=== PATIENT | female | born 1975 | race Caucasian/White ===

== ENCOUNTER 2017-11-24 23:55 | Inpatient (IN) | payer OTHER ==
[2017-11-25] MEDS ORDERED: NS 1,000 ML IV ONE (00:15)
--- NOTE | 2017-11-25 00:15 | EDPHY ---
H & P Stated Complaint: N/V, black stools, abd pain. Time Seen by Provider: 11/25/17 00:15 HPI/ROS: HPI CHIEF COMPLAINT: Abdominal pain, black tarry stool intermittently HISTORY OF PRESENT ILLNESS: This patient is a 42-year-old female she presents emergency room with abdominal pain. She has been currently worked up by Dr. Brennan, for intermittent black tarry stool. Patient states that she has had endoscopy that showed rather significant gastritis, but no ulcer, additionally she reports she had a pill camera however it stops her cording down to her stomach. She is due to have a colonoscopy in December. She presents emergency room with increasing lower abdominal pain with vomiting x2 episodes mainly yellowish. No blood. She had black tarry stool yesterday but none today. Her main complaint is lower abdominal pain it is periumbilical. With associated nausea vomiting. No fever. Intermittent black stool. Past Medical History: Rheumatoid arthritis, insulin-dependent diabetic, migraine headaches Past Surgical History: Multiple abdominal surgeries including small-bowel resection x2, appendectomy, cholecystectomy, endometriosis Social History: Denies daily use of drugs alcohol tobacco. Family History: Noncontributory ROS REVIEW OF SYSTEMS: A comprehensive 10 point review of systems is otherwise negative aside from elements mentioned in the history of present illness. Exam Constitutional appears nontoxic no acute distress triage nursing summary reviewed, vital signs reviewed, awake/alert. Eyes normal conjunctivae and sclera, EOMI, PERRLA. HENT normal inspection, atraumatic, moist mucus membranes, no epistaxis, neck supple/ no meningismus, no raccoon eyes. Respiratory clear to auscultation bilaterally, normal breath sounds, no respiratory distress, no wheezing. Cardiovascular rate normal, regular rhythm, no murmur, no edema, distal pulses normal. Gastrointestinal mild tender palpation periumbilical, no rebound, no guarding, normal bowel sounds, no distension, no pulsatile mass. Genitourinary no CVA tenderness. Musculoskeletal no midline vertebral tenderness, full range of motion, no calf swelling, no tenderness of extremities, no meningismus, good pulses, neurovascularly intact. Skin pink, warm, & dry, no rash, skin atraumatic. Neurologic awake, alert and oriented x 3, AAOx3, moves all 4 extremities equally, motor intact, sensory intact, CN II-XII intact, normal cerebellar, normal vision, normal speech. Psychiatric normal mood/affect. Heme/Lymph/Immune no lymphadenopathy. Differential diagnosis includes but is not limited to and in no particular order : Bowel obstruction, appendicitis, gallbladder disease, diverticulitis, colitis , enteritis, perforated viscus, gastritis, GERD, esophagitis, urinary tract infection, pyelonephritis, kidney stones Medical Decision Making: Plan for this patient IV establishment with fluid bolus, IV Zofran, IV Dilaudid, 1 L normal saline IV fluid bolus, CT scan abdomen pelvis without contrast re-evaluate. Re-evaluation: 0255: CT scan abdomen pelvis with IV contrast shows some mesenteric inflammation around her periumbilical region. This is where she is tender. However abdomen pelvis does not show any acute inflammatory process other than this. 0257: Patient's blood work reviewed. At this time I did re-evaluate she is requesting more pain medicine and nausea medicine. Source: Patient - Personal History LMP (Females 10-55): Hysterectomy Current Tetanus/Diphtheria Vaccine: Yes Current Tetanus Diphtheria and Acellular Pertussis (TDAP): Yes Tetanus Vaccine Date: 2013 - Medical/Surgical History Hx Asthma: Yes Hx Chronic Respiratory Disease: No Hx Diabetes: Yes Hx Cardiac Disease: No Hx Renal Disease: No Hx Cirrhosis: No Hx Alcoholism: No Hx HIV/AIDS: No Hx Splenectomy or Spleen Trauma: No Other PMH: KIDNEY STONES, ASTHMA, endometreosis, DVT, small bowel resection, migraine, DM type2. - Social History Smoking Status: Never smoked Constitutional: Initial Vital Signs Temperature (C) 36.7 C 11/25/17 00:01 Heart Rate 105 H 11/25/17 00:01 Respiratory Rate 18 11/25/17 00:01 Blood Pressure 132/88 H 11/25/17 00:01 O2 Sat (%) 97 11/25/17 00:01 O2 Delivery Mode Room Air Allergies/Adverse Reactions: amoxicillin trihydrate [From Augmentin] Allergy (Verified 12/01/15 20:39) metoclopramide HCl [From Reglan] Allergy (Verified 11/25/17 16:34) Hives morphine Allergy (Verified 12/01/15 20:39) potassium clavulanate [From Augmentin] Allergy (Verified 12/01/15 20:39) prochlorperazine edisylate [From Compazine] Allergy (Verified 11/25/17 16:34) Psychosis prochlorperazine maleate [From Compazine] Allergy (Verified 11/25/17 16:34) Psychosis shellfish derived Allergy (Verified 12/01/15 20:39) CONTRAST DYE Allergy (Uncoded 11/25/14 21:37) Home Medications: Medication Instructions Recorded Insulin Lispro [humALOG LISPRO 100 20 unit SC TIDMEAL 12/02/15 units/ml (*)] Metoprolol Tartrate [Lopressor 100 100 mg PO BID 12/02/15 mg (*)] SUMAtriptan [Imitrex 50 MG (*)] 100 mg PO Q2H PRN 12/02/15 Albuterol [Proventil Inhaler HFA 1 - 2 puffs IH Q4H PRN 11/25/17 (*)] Cholecalciferol Vit D3 [Vitamin D3 1,000 units PO DAILY 11/25/17 (*)] Estradiol [Vivelle-Dot 0.1MG (*)] 0.1 mg TD WESA@0800 11/25/17 Insulin Degludec [Tresiba 180 unit SQ HS 11/25/17 Flextouch U-100] Pantoprazole Sodium [Protonix 40mg 40 mg PO BID 11/25/17 (*)] Medical Decision Making - Data Points Laboratory Results: Laboratory Results 11/25/17 01:50 11/25/17 01:50 Medications Given: Hydralazine HCl (Apresoline) 5 mg IVP Q4H PRN PRN Reason: SBP>170 OR DBP>100 Stop: 05/24/18 17:55 Last Admin: 11/25/17 18:09 Dose: 5 mg Hydromorphone HCl (Dilaudid) 0.5 - 1 mg IVP Q2H PRN PRN Reason: Pain, Severe Unable to Take PO Stop: 12/05/17 17:56 Last Admin: 11/25/17 23:06 Dose: 1 mg Erythromycin Lactobionate 250 (mg/ Sodium Chloride) 105 mls @ 105 mls/hr IV Q6HRS [facility] PRN Reason: Protocol Stop: 12/25/17 17:59 Last Admin: 11/25/17 18:12 Dose: 105 mls Insulin Glargine (Lantus Syringe) [address] [facility] Stop: 05/24/18 05:29 Last Admin: 11/25/17 23:05 Dose: 110 units Insulin Human Lispro (Humalog Lispro) 0 unit SC ACHS [facility] PRN Reason: Protocol Stop: 05/24/18 07:29 Last Admin: 11/25/17 23:06 Dose: 6 units Insulin Human Lispro (Humalog Lispro) 20 unit SC TIDMEAL [facility] Stop: 05/24/18 17:59 Last Admin: 11/25/17 18:05 Dose: Not Given Lorazepam (Ativan Injection) 0.5 - 1 mg IVP Q8H PRN PRN Reason: Nausea/Vomiting, Can't Take PO Stop: 05/24/18 17:57 Last Admin: 11/25/17 20:04 Dose: 1 mg Metoprolol Tartrate (Lopressor) 100 mg PO BID [facility] Stop: 05/24/18 16:29 Last Admin: 11/25/17 23:19 Dose: 100 mg Ondansetron HCl (Zofran) 4 mg IVP Q4HRS PRN PRN Reason: Nausea/Vomiting, Can't Take PO Stop: 05/24/18 03:11 Last Admin: 11/25/17 14:13 Dose: 4 mg Pantoprazole Sodium (Protonix) 40 mg IVP BID [facility] Stop: 05/24/18 08:59 Last Admin: 11/25/17 23:05 Dose: 40 mg Promethazine HCl (Phenergan) 6.25 mg IVP Q6HRS [facility] Stop: 05/24/18 17:59 Last Admin: 11/25/17 23:05 Dose: 6.25 mg Discontinued Medications Famotidine (Pepcid) 20 mg IVP EDNOW ONE Stop: 11/25/17 00:41 Last Admin: 11/25/17 02:01 Dose: 20 mg Hydromorphone HCl (Dilaudid) 0.5 mg IVP EDNOW ONE Stop: 11/25/17 00:41 Last Admin: 11/25/17 02:01 Dose: 1 mg Hydromorphone HCl (Dilaudid) 1 mg IVP EDNOW ONE Stop: 11/25/17 02:57 Last Admin: 11/25/17 03:03 Dose: 1 mg Hydromorphone HCl (Dilaudid) 0.5 - 1 mg IVP Q3HRS PRN PRN Reason: Pain, Breakthrough Stop: 12/05/17 04:50 Last Admin: 11/25/17 17:17 Dose: 1 mg Sodium Chloride (Ns) 1,000 mls @ 0 mls/hr IV EDNOW ONE; Wide Open PRN Reason: Protocol Stop: 11/25/17 00:16 Last Admin: 11/25/17 02:00 Dose: 1,000 mls Sodium Chloride (Ns) 1,000 mls @ 150 mls/hr IV CONT ABBY Stop: 05/24/18 03:14 Last Admin: 11/25/17 23:29 Dose: 1,000 mls Insulin Glargine (Lantus Syringe) 70 units SC HS ABBY Stop: 05/24/18 05:29 Last Admin: 11/25/17 06:36 Dose: 70 units Ondansetron HCl (Zofran) 4 mg IVP EDNOW ONE Stop: 11/25/17 00:41 Last Admin: 11/25/17 02:00 Dose: 4 mg Ondansetron HCl (Zofran Odt) 4 mg PO EDNOW ONE Stop: 11/25/17 01:31 Last Admin: 11/25/17 01:30 Dose: 4 mg Ondansetron HCl (Zofran) 4 mg IVP EDNOW ONE Stop: 11/25/17 02:57 Last Admin: 11/25/17 03:03 Dose: 4 mg Promethazine HCl (Phenergan) 6.25 mg IVP ONCE ONE Stop: 11/25/17 03:43 Last Admin: 11/25/17 03:50 Dose: 6.25 mg Promethazine HCl (Phenergan) 6.25 mg IVP EDNOW ONE Stop: 11/25/17 04:01 Last Admin: 11/25/17 05:04 Dose: Not Given Promethazine HCl (Phenergan) 6.25 mg IVP Q6HRS PRN PRN Reason: Nausea/Vomiting, Can't Take PO Stop: 05/24/18 05:26 Last Admin: 11/25/17 11:00 Dose: 6.25 mg Departure - Departure Disposition: [facility] Acute Clinical Impression: Abdominal pain Qualifiers: Abdominal location: unspecified location Qualified Code(s): R10.9 - Unspecified abdominal pain Condition: Fair
[2017-11-25] MEDS ORDERED: ONDANSETRON 4 MG/2 ML VIAL IVP ONE ×2 (00:40→02:56)
[2017-11-25] MEDS ORDERED: HYDROmorphONE/DILAUDID 2 MG/ML INJ IVP ONE ×2 (00:40→02:56)
[2017-11-25] MEDS ORDERED: FAMOTIDINE 20 MG/2 ML SDV IVP ONE (00:40)
[2017-11-25] MEDS ORDERED: ONDANSETRON DISINTEGRATING 4 MG TAB PO ONE (01:30)
[2017-11-25] MEDS ORDERED: ONDANSETRON DISINTEGRATING 4 MG TAB ONE (01:34)
[2017-11-25] MEDS ORDERED: HYDROmorphONE/DILAUDID 1 MG/ML INJ ONE ×2 (01:59→03:01)
[2017-11-25 02:00] LABS: PLATELET COUNT 273 10^3/uL (150-400)
[2017-11-25 02:08] LABS: INR 0.93 (0.83-1.16); PROTIME(PATIENT) 12.7 SEC (12.0-15.0)
[2017-11-25] MEDS ORDERED: ACETAMINOPHEN 325 MG TAB PO PRN (03:12)
[2017-11-25] MEDS ORDERED: LORazepam 2 MG/ML INJ IVP PRN (03:12)
[2017-11-25] MEDS ORDERED: PROMETHAZINE HCL 25 MG/ML INJ IVP ONE ×2 (03:42→04:00)
[2017-11-25] MEDS ORDERED: PROMETHAZINE HCL 25 MG/ML INJ ONE (03:48)
[2017-11-25] MEDS: NS 1,000 ML IV SCH ×3 (04:45→23:29)
[2017-11-25] MEDS: HYDROmorphONE/DILAUDID 1 MG/ML INJ IVP PRN ×9 (05:19→23:08)
[2017-11-25] MEDS ORDERED: D50W 25 GM/50 ML VIAL IVP PRN (05:21)
[2017-11-25] MEDS ORDERED: PROMETHAZINE HCL 25 MG/ML INJ IVP PRN (05:27)
[2017-11-25] MEDS ORDERED: INSULIN GLARGINE 100 UNITS/ML UNIT SC SCH ×2 (05:30→16:11)
--- NOTE | 2017-11-25 06:36 | GHP ---
[f rep st] HISTORY AND PHYSICAL DATE OF ADMISSION: 11/25/2017 The patient's PCP is unlisted. PRIMARY GI: Dr. Brennan. SOURCE: Patient provides history, appears reliable. EMR was reviewed and case discussed with ED pro vider. CHIEF COMPLAINT: Abdominal pain, melena. HISTORY OF PRESENT ILLNESS: This is a pleasant 42-year-old female with past medical history signific ant for reflux, morbid obesity, RA, insulin-dependent diabetes type 2 uncontrolled, and more recently 1 month history of intermittent melena with abdominal pain, who presents to the emergency department today with complaints of periumbilical pain that radiates into her abdomen. The patient has also be en experiencing nausea and vomiting without any hematemesis. She has been having some increased belc esther. She states it smells like sulfur. She reports that she has had some loose stools, but denies any melena hematochezia today. She states her stools are brown today, but in the last 2 days she had melenic stools. The patient denies any fevers, but has been experiencing some chills. She states s he spoke with Dr. Brennan on Saturday, who advised her if her melena or pain worsened, to go to the emerg ency department. REVIEW OF SYSTEMS: GENERAL: Positive for chills. Negative for fevers, although patient states that she always feels hot due to either her RA or since her symptoms started. SKIN: No rashes or sores. ENT: No congestion or sore throat. EYES: Patient reports she has been seeing a few extra floaters . She does have some dry eyes and wears contacts, but no acute changes in vision or ocular pain. CV : No chest pain or palpitations. RESPIRATORY: No shortness of breath or cough. GI: See HPI. : No dysuria or hematuria. MUSCULOSKELETAL: Diffuse joint muscle aching. NEURO: No current headach e, but does have a history of migraine headaches. The patient does report some numbness or tingling at the bottoms of her feet intermittently, usually in the morning. None currently. PSYCH: Patient denies anxiety or depression. ALLERGIES: Amoxicillin, morphine, Reglan, Compazine, shellfish, and contrast dye. HOME MEDICATIONS: Tresiba 120 units at h.s., sumatriptan 100 mg p.o. q.2 hours p.r.n. for migraine, metoprolol 100 mg p.o. b.i.d., Humalog lispro 10 units subcu t.i.d. with meals, Vivelle-Dot 0.025 mg Wednesdays and Saturdays, transdermal albuterol HFA 1-2 puffs inhaled q.4-6 hours p.r.n. PAST MEDICAL HISTORY: Significant for a 1 month history of intermittent melena, morbid obesity, rheu matoid arthritis, insulin-dependent diabetes type 2 uncontrolled, migraine headaches, GERD, and noctu rnal hypoxia pending an outpatient sleep study. PAST SURGICAL HISTORY: Significant for EGD and a PillCam that was unsuccessful, multiple abdominal s urgeries including small bowel resection x2, 1 with findings of endometrioma and another related to v ascular band abnormality, appendectomy, cholecystectomy, total abdominal hysterectomy, BSO. FAMILY HISTORY: Father with history of colon cancer. Mother with bile duct cancer. SOCIAL HISTORY: Patient lives with her and 2 children. She does not smoke, drink, or do benito gs. CODE STATUS: Full. PHYSICAL EXAMINATION: VITAL SIGNS: Upon arrival to the emergency department, blood pressure 131/99, heart rate is 105, respiratory rate 20, O2 sat is 97% on room air, temperature 36.8. Current vitals available, blood pressure 111/85, heart rate 99, respiratory rate 16, O2 saturation 94% on 2 L by na hector cannula, temperature 36.5. GENERAL: No acute distress. Patient is lying quite still in bed, aw micah. She does appear fatigued and ill but nontoxic, slightly flushed. HEAD: Normocephalic, atrauma tic. EYES: Extraocular muscles grossly intact. Pupils equal, round, react to light bilaterally and symmetric. No scleral icterus, conjunctival injection. Mucous membranes appear slightly dry. No n ba discharge and nasal cannula are in place. NECK: Supple, excessive soft tissue is present. CV: Regular rate and rhythm. No murmurs, rubs, or gallops appreciated. Slightly distant heart sounds secondary to body habitus. RESPIRATORY: Unlabored breathing. LUNGS: Clear to auscultation bilater ally. No wheezes, rales, or rhonchi appreciated. ABDOMEN: Obese, soft, slightly distended with ten derness to palpation in the periumbilical to lower abdominal area. No rebound or guarding appreciate d. Hypoactive bowel sounds present. : No suprapubic tenderness to palpation. No Turner catheter in place. EXTREMITIES: Patient without any cyanosis, clubbing, or edema appreciated. 2+ pedal puls es. NEURO: Grossly nonfocal. No facial drooping. Patient is awake, alert, and oriented x4. Moves all extremities. MUSCULOSKELETAL: Patient with complaints of some joint pain with range of motion. She is able to turn on her side independently. PSYCH: Thought process, content and questions appe ar appropriate. Patient does appear slightly anxious, but she is cooperative and pleasant. LABORATORY STUDIES: WBC is 9.84, hemoglobin 15.5, hematocrit 45.3, MCV of 89.5, platelet count of 27 3, no bands. Repeat H and H showing 14.5 and 42.5. PT/INR is 12.7, INR 0.93, PTT is 23.5. Lactic acid 2.3. Repeat is 1.9. Sodium 140, potassium 4.0, chloride 103, CO2 is 22, anion gap 15, BUN 20, creatinine 0.9, GFR greater than 60, glucose 291, calcium is 9.3, total bilirubin 0.6, ALT is 42, AST is 23, alk phos is 101, to kwabena protein 7.4, albumin is 4.0, lipase 118. Negative beta HCG. UA specific gravity 1.027, pH of 5. 0, 1+ blood, trace bacteria, glucose 3+, otherwise negative. CT abdomen and pelvis without contrast. Preliminary report was reviewed noting a stable 10 mm nodule in the left lower lobe since 2015. Mild mesentery inflammation in the periumbilical region. Otherw ise incidental ventral hernia with omental fat noted also small uterus. No adnexal masses. ASSESSMENT AND PLAN: Leena 42-year-old female with a history of rheumatoid arthritis, insulin dep endent diabetes mellitus 2 uncontrolled, morbid obesity, reflux with 1 month history of intermittent melena, who presents with periumbilical abdominal pain, distention, nausea, and vomiting. 1. Abdominal pain could possibly be a mesenteric lymphadenitis or less likely colitis, gastroenterit is. Patient related to ventral hernia. The patient continues to have persistent periumbilical pain and tenderness. Her nausea and vomiting have improved with antiemetics. She is afebrile. Will not start any antibiotics. She has no leukocytosis. We will further discuss with Gastroenterology or Dr Kavitha Brennan this morning. No urgent need for any intervention. The patient's hemoglobin and hematocrit are within normal limits and she has not had any complaints of melenic stools since yesterday. 2. Nausea and vomiting, controlled with antiemetics as noted above. 3. Melena. Plan as noted above. 4. Elevated lactate, likely related to some component of dehydration with a specific gravity on her urine of 1.027. Lactate has resolved after some intravenous fluids, which we will continue and make patient n.p.o. for now. 5. Diabetes type 2, uncontrolled. Patient is on 120 units of Tresiba at bedtime. Will provide her evening dose equivalent, slightly decreased dosing with Lantus per formulary at this time. We will m onitor blood sugars and add insulin dosing. 6. Morbid obesity with body mass index of 39.9. 7. Rheumatoid arthritis. Patient reports that she is not currently on any immunomodulators. She ramos s not been on for some time until she has been able to identify cause of her abdominal pain and bleed ing. 8. Chronic pain. Supportive care, p.r.n. medications as noted above. 9. Gastroesophageal reflux disease. Continue proton pump inhibitors intravenous until patient's t is advanced. 10. Nocturnal hypoxia. Continue oxygen at bedtime. Patient with plan for outpatient sleep study. 11. Fluid, electrolyte, nutrition. Continue with intravenous fluid supplementation. Patient is n.p .o. Electrolyte monitoring, replacement if needed. N.p.o. status pending further discussion with [facility]. 12. Prophylaxis. sequential compression devices, holding anticoagulation pending Gastroenterology e valuation. 13. Cor status is full. 14. Disposition: Patient admitted to observation status at this time pending further recommendation s from the Gastroenterology service. /[id number]/MODL
[2017-11-25] MEDS: ONDANSETRON 4 MG/2 ML VIAL IVP PRN ×2 (08:23→14:13)
[2017-11-25] MEDS: PANTOPRAZOLE SODIUM 40 MG VIAL IVP SCH ×2 (08:34→23:05)
[2017-11-25] MEDS: INSULIN LISPRO 100 UNIT/ML SC SCH ×5 (10:26→23:06)
--- NOTE | 2017-11-25 14:54 | ASMTCASEMG ---
Living Arrangements What is your living Answers: With Spouse arrangement? Who do you live with? Type Of Residence What kind of residence do Answers: House you live in? Discharge Plan Comments Coordination Status Comments Notes: Pt is a 42 y/o female admitted for abdominal pain and melena. Pt will most likely d/c independent when medically stable. No therapies ordered at this time. CM available for changes. Plan: Independent Date Signed: 11/25/2017 02:53 PM Electronically Signed By:CESAR Nicole
[2017-11-25] MEDS ORDERED: SUMAtriptan 50 MG TAB PO PRN (15:52)
[2017-11-25] MEDS ORDERED: ALBUTEROL 60 PUFFS/8 GM MDI IH PRN (15:52)
--- NOTE | 2017-11-25 16:19 | HOSPPROG ---
Hospitalist Progress Note Assessment/Plan: 42 yo F w dm, abd pain, vomiting abd pain and vomiting: nursing notes she threw up undigested food that she ate a few days ago. in this setting, s/o gastroparesis 1. blood sugar control 2. allergic to regaln 3. scheduled erythromycin 4. scheduled phenergan Objective: Vital Signs Temp Pulse Resp BP Pulse Ox 36.5 C 91 16 155/109 H 93 11/25/17 11:17 11/25/17 11:17 11/25/17 11:17 11/25/17 11:17 11/25/17 08:00 Laboratory Results 11/25/17 05:02 11/25/17 05:02 11/24/17 11/25/17 11/26/17 05:59 05:59 05:59 Intake Total 1000 Output Total 350 Balance 1000 -350 PT 12.7 SEC (12.0-15.0) 11/25/17 01:50 INR 0.93 (0.83-1.16) 11/25/17 01:50 ICD10 Worksheet Patient Problems: Problems Problem Status Onset Abdominal pain Acute Chest pain Acute
[2017-11-25] MEDS: PROMETHAZINE HCL 25 MG/ML INJ IVP SCH ×2 (17:18→23:05)
[2017-11-25] MEDS: METOPROLOL TARTRATE 100 MG TAB PO SCH ×2 (17:36→23:19)
[2017-11-25] MEDS ORDERED: hydrALAZINE 20 MG/ML VIAL IVP PRN (17:56)
[2017-11-25] MEDS: ERYTHROMYCIN LACTOBIONATE 250 MG in NS 100 ML IV SCH (18:12)
[2017-11-25] MEDS: LORazepam 2 MG/ML INJ IVP PRN (20:04)
[2017-11-25] MEDS ORDERED: METOPROLOL TARTRATE 100 MG TAB PO SCH (21:00)
[2017-11-25] MEDS: INSULIN GLARGINE 100 UNITS/ML UNIT SC SCH (23:05)
[2017-11-26] MEDS: ERYTHROMYCIN LACTOBIONATE 250 MG in NS 100 ML IV SCH ×3 (00:10→16:50)
[2017-11-26] MEDS: HYDROmorphONE/DILAUDID 1 MG/ML INJ IVP PRN ×10 (01:28→23:34)
[2017-11-26] MEDS: LORazepam 2 MG/ML INJ IVP PRN ×2 (03:49→14:39)
[2017-11-26] MEDS: PROMETHAZINE HCL 25 MG/ML INJ IVP SCH ×4 (06:27→23:34)
[2017-11-26] MEDS: ONDANSETRON 4 MG/2 ML VIAL IVP PRN ×4 (08:41→21:26)
[2017-11-26] MEDS: INSULIN LISPRO 100 UNIT/ML SC SCH ×7 (08:48→21:11)
[2017-11-26] MEDS: CHOLECALCIFEROL VIT D3 1,000 UNITS TAB PO SCH (08:49)
[2017-11-26] MEDS ORDERED: NS 1,000 ML IV ONE (09:04)
[2017-11-26] MEDS ORDERED: ALTEPLASE 2 MG VIAL IVP PRN (09:05)
[2017-11-26] MEDS: PANTOPRAZOLE SODIUM 40 MG VIAL IVP SCH ×2 (09:12→21:24)
--- NOTE | 2017-11-26 09:32 | HOSPPROG ---
Hospitalist Progress Note Assessment/Plan: # abd pain/N/V - started on erythromycin yesterday for presumed gastroparesis - no response - considerations include gastroparesis, gastritis, hernia; reportedly severe gastritis on recent EGD, capsule stuck in stomach - will not tolerate gastric emptying study today - cont treatment with narcotics IV, anti-emetics - will consult GI today # melena - recent EGD; plans for outpatient colonoscopy # hypotension - suspect hypovolemic - bolus 1L NS # sinus tachycardia - reports that she is on metop to control this not currently tachy # DM2 - glucs still elevated - cont insulin at present dose given NPO status - cont glargine 110 hs, lispro 20 TID meal + SSI # morbid obesity - BMI 39 # RA - off treatment; will gather further details from her regarding this Subjective: still having significant abd pain with N/V Objective: Vital Signs Temp Pulse Resp BP Pulse Ox 36.9 C 77 14 87/67 L 92 11/26/17 08:00 11/26/17 08:00 11/26/17 08:00 11/26/17 08:00 11/26/17 08:00 Laboratory Results 11/25/17 05:02 11/25/17 05:02 11/25/17 11/26/17 11/27/17 05:59 05:59 05:59 Intake Total 1000 3027 Output Total 950 Balance 1000 2077 PT 12.7 SEC (12.0-15.0) 11/25/17 01:50 INR 0.93 (0.83-1.16) 11/25/17 01:[address] abd reviewed - Physical Exam Constitutional: uncomfortable (tearful) Cardiovascular: regular rate and rhythym, no murmur, rub, or gallop Respiratory: no respiratory distress, no rales or rhonchi Gastrointestinal: other (soft; mild ventral hernia; very TTP around umbilicus; no rebound or guarding) ICD10 Worksheet Patient Problems: Problems Problem Status Onset Chest pain Acute Abdominal pain Acute
--- NOTE | 2017-11-26 09:49 | PDMN ---
Medical Necessity Medical necessity: change to IP; los>2mn for abd pain, N/V, melena, hypotension , elevated glucose; requires continued IV narcotics and antiemetics, GI consult , delay of gastric emptying study r/t symptoms, IVF bolus, follow glucose; comorbid obesity, RA, not on treatment, and sinus tach; per order and progress note 11/26/17
[2017-11-26] MEDS: METOPROLOL TARTRATE 100 MG TAB PO SCH ×2 (10:07→21:35)
[2017-11-26] MEDS ORDERED: LIDOCAINE 1% 300 MG/30 ML SDV ONE (11:51)
--- NOTE | 2017-11-26 18:00 | PDRADPN ---
Radiology Procedure Note Date of Procedure: 11/26/17 Radiologist: Osbaldo Heller Anesthesia: Local (Specify) Pre-op Diagnosis: medications needed Post-op Diagnosis: same Indication: venous access Procedure: RUE DL PICC Finding(s): DL 45cm picc via basilic vein. optimal tip position, ok to use. Inf/Abcess present in the surg proc area at time of surgery?: No EBL: Minimal Complications: none
[2017-11-26] MEDS: INSULIN GLARGINE 100 UNITS/ML UNIT SC SCH (21:24)
[2017-11-27] MEDS: HYDROmorphONE/DILAUDID 1 MG/ML INJ IVP PRN ×9 (01:55→23:39)
[2017-11-27] MEDS ORDERED: HYOSCYAMINE SULFATE 0.125 MG TAB PO PRN (04:43)
--- NOTE | 2017-11-27 04:46 | SOAPPROG ---
SOAP Progress Note Assessment/Plan: Assessment: Plan: 11/27/17 04:44 GI note See dictated consult note for details. Will start trial of Carafate and antispamsodic. No plans for EGD/colonoscopy etc. Will follow. Objective: Vital Signs Temp Pulse Resp BP Pulse Ox 36.9 C 78 16 129/76 H 94 11/26/17 23:42 11/26/17 23:42 11/26/17 23:42 11/26/17 23:42 11/26/17 23:42 Laboratory Results 11/25/17 05:02 11/25/17 05:02 11/25/17 11/26/17 11/27/17 05:59 05:59 05:59 Intake Total 1000 3027 2130 Output Total 950 Balance 1000 2077 2130 PT 12.7 SEC (12.0-15.0) 11/25/17 01:50 INR 0.93 (0.83-1.16) 11/25/17 01:50 ICD10 Worksheet Patient Problems: Problems Problem Status Onset Abdominal pain Acute Chest pain Acute
--- NOTE | 2017-11-27 05:12 | GCON ---
[f rep st] CONSULTATION DATE OF CONSULTATION: 11/26/2017 CONSULTING PHYSICIAN: Dr. Olman Sanchez. REASON FOR CONSULTATION: Abdominal pain/melena. CHIEF COMPLAINT: Periumbilical abdominal pain, nausea, and vomiting. HISTORY OF PRESENT ILLNESS: This patient is a 42-year-old female with multiple medical problems including endometriosis, morbid obesity, type 2 diabetes mellitus, who presents to [facility] with complaints of significant abdominal pain, nausea, vomiting, as well as intermittent melena. She states that she has been experiencing a pain that is periumbilical and radiates to her lower abdomen. She describes the pain as dull but can be sharp at times. This pain has been present for most days over the last 6 weeks but over the last several days has been persistent.and has become progressively more intense. She had significant complaints of nausea and has vomited several times. She has also had intermittent symptoms of melenic bowel movements over this time frame. She believes that oral intake can make her symptoms worse with no significant alleviating factors. The patient has had multiple GI complaints in the past and has had multiple CT scans including her last one during admission of 11/25/2017. She had a recent upper endoscopy on 09/18/2017 during hospitalization at [facility] for complaints of epigastric pain, nausea, and vomiting, which was fairly unrevealing. She had a capsule endoscopy performed on 10/14/2017, but unfortunately the capsule did not pass beyond the stomach. She may have a questionable history of gastroparesis. Her last colonoscopy was on 02/13/2016 where she was found to have a tubular adenoma. I am being asked by Dr. Sanchez to evaluate the patient in consultation regarding abdominal pain, nausea, vomiting, as well as melenic stools. PAST MEDICAL HISTORY: Obstructive sleep apnea, PCOS, endometriosis, anal fissure, rheumatoid arthritis, diabetes mellitus type 2, migraines, asthma, chronic pelvic pain. PAST SURGICAL HISTORY: Anal sphincterotomy, appendectomy, exploratory laparotomy with lysis of adhesions, hemorrhoidectomy, small bowel resection, hysterectomy. FAMILY HISTORY: Mother liver cancer and diabetes mellitus type 2, hypertension , asthma. Sister myasthenia gravis, diabetes mellitus type 2, hyperlipidemia. Father brain cancer. SOCIAL HISTORY: . No significant alcohol or tobacco use. ALLERGIES: Amoxicillin, morphine, Reglan, Compazine, shellfish, contrast dye. HOME MEDICATION: Tresiba, sumatriptan, metoprolol, Humalog, albuterol, control. REVIEW OF SYSTEMS: A 12-point comprehensive review of systems was asked. Pertinent positives and negatives per HPI. PHYSICAL EXAM: VITALS: Blood pressure 124/65, heart rate 84, respirations 12, temperature is 36.8. GENERAL: Awake and alert and oriented. Patient has nausea and does seem in some distress. HEENT: Anicteric mucosa. NECK: No JVD. CARDIOVASCULAR: Regular rhythm, positive S1, S2. No murmurs appreciated. LUNGS: Clear to auscultation bilaterally without wheezes, rales, or rhonchi. ABDOMEN: Mild tenderness in the midepigastrium area. No guarding. No rebound. Positive bowel sounds. EXTREMITIES: No cyanosis, clubbing, edema. NEUROLOGIC: 2 through 12 grossly intact. PSYCH: Normal affect. BLOOD WORK: WBCs 9.4, hemoglobin 15.5, hematocrit 45.3. INR 0.93. Lactic acid 1.9. ASSESSMENT AND PLAN: 1. Nausea and vomiting- with abdominal pain. Has had prior symptoms in the past. Has had a workup including several CT scans and an EGD with no obvious cause of her symptoms found. Etiology ? Atypical gastroparesis versus infectious versus psychogenic versus other? At this time, low yield to repeat upper endoscopy. Would recommend conservative care including PPI therapy. If symptoms continue, will continue a trial of Carafate versus other. 2. Melena - intermittent. Has a recent upper endoscopy with a colonoscopy done several years ago. She did have a capsule endoscopy where the pill did not pass into the small bowel. At this time, not concerned about an active GI bleed, and her hemoglobin has been stable. Would consider repeat capsule endoscopy, as well as repeat colonoscopy as an outpatient. 3. Diabetes mellitus. 4. Morbid obesity. 5. Rheumatoid arthritis. 6. Chronic pain. 7. Gastroesophageal reflux disease. 8. Endometriosis. 9. Obstructive sleep apnea. Thank you for this consultation. /[id number]/MODL MTDD
[2017-11-27] MEDS: PROMETHAZINE HCL 25 MG/ML INJ IVP SCH ×4 (06:06→23:25)
[2017-11-27] MEDS ORDERED: ESTRADIOL VIVELLE 0.1 MG PATCH TD SCH (08:00)
[2017-11-27] MEDS: PANTOPRAZOLE SODIUM 40 MG VIAL IVP SCH ×2 (08:48→20:38)
[2017-11-27] MEDS: ONDANSETRON 4 MG/2 ML VIAL IVP PRN ×2 (08:49→16:44)
[2017-11-27] MEDS: NS 1,000 ML IV SCH ×2 (08:59→20:50)
[2017-11-27] MEDS: SUCRALFATE 1 GM/10 ML UDCUP PO SCH ×5 (08:59→20:38)
[2017-11-27] MEDS: METOPROLOL TARTRATE 100 MG TAB PO SCH ×2 (08:59→20:38)
[2017-11-27] MEDS: INSULIN LISPRO 100 UNIT/ML SC SCH ×7 (09:00→21:14)
[2017-11-27] MEDS: CHOLECALCIFEROL VIT D3 1,000 UNITS TAB PO SCH (09:06)
[2017-11-27] MEDS: LORazepam 2 MG/ML INJ IVP PRN ×2 (10:47→20:38)
[2017-11-27] MEDS ORDERED: oxyCODONE IR 5 MG TAB PO PRN (12:49)
--- NOTE | 2017-11-27 12:50 | HOSPPROG ---
Hospitalist Progress Note Assessment/Plan: # abd pain/N/V - did not respond to erythromycin - per Dr Hsu, recent EGD was unremarkable; he is not planning endoscopic evaluation at this time - she is requiring significant dilaudid IV - will increase dosing interval - start oxy PO and encourage this - cont protonix IV, trial of carafate and levsin # melena - recent EGD; plans for outpatient colonoscopy # hypotension - resolved with IVF # sinus tachycardia - reports that she is on metop to control this not currently tachy # DM2 - glucs still elevated - cont insulin at present dose given NPO status - cont glargine 110 hs, lispro 20 TID meal + SSI # morbid obesity - BMI 39 # RA - off treatment; will gather further details from her regarding this Subjective: feels slightly better today Objective: Vital Signs Temp Pulse Resp BP Pulse Ox 37.2 C 70 16 134/69 H 91 L 11/27/17 09:23 11/27/17 09:23 11/27/17 09:23 11/27/17 09:23 11/27/17 09:23 Laboratory Results 11/25/17 05:02 11/25/17 05:02 11/26/17 11/27/17 11/28/17 05:59 05:59 05:59 Intake Total 3027 2280 Output Total 950 300 Balance 2076 1979 PT 12.7 SEC (12.0-15.0) 11/25/17 01:50 INR 0.93 (0.83-1.16) 11/25/17 01:50 high risk needing dilaudid IV - Physical Exam Constitutional: no apparent distress, appears nourished Cardiovascular: regular rate and rhythym, no murmur, rub, or gallop Respiratory: no respiratory distress, no rales or rhonchi, clear to auscultation Gastrointestinal: other (soft, TTP mostly fidel-umbilical), No guarding, No rebound, No distension ICD10 Worksheet Patient Problems: Problems Problem Status Onset Chest pain Acute Abdominal pain Acute
--- NOTE | 2017-11-27 16:54 | ASMTCMCOM ---
CM Note CM Note Notes: CM spoke w/RN, plan remains the same, anticipate pt will dc home w/support of when medically stable. CM available for any changes. DC Plan: Indepedent Date Signed: 11/27/2017 04:54 PM Electronically Signed By:Kelsea Corea RN
--- NOTE | 2017-11-27 20:25 | SOAPPROG ---
SOAP Progress Note Assessment/Plan: Assessment: Plan: 11/27/17 04:44 GI note See dictated consult note for details. Will start trial of Carafate and antispamsodic. No plans for EGD/colonoscopy etc. Will follow. 11/27/17 20:23 A/P 1. Abdominal pain- with nausea. Mildly improved. Will see how she does on trial of carafate and hyoscyamine. Subjective: cc: Follow up on abdominal pain. Feeling about 10-15% better Objective: Vital Signs Temp Pulse Resp BP Pulse Ox 36.8 C 77 16 130/75 H 92 11/27/17 19:31 11/27/17 19:31 11/27/17 19:31 11/27/17 19:31 11/27/17 19:31 Laboratory Results 11/25/17 05:02 11/25/17 05:02 11/26/17 11/27/17 11/28/17 05:59 05:59 05:59 Intake Total 3027 2280 1200 Output Total 950 300 Balance 2077 1980 1200 PT 12.7 SEC (12.0-15.0) 11/25/17 01:50 INR 0.93 (0.83-1.16) 11/25/17 01:50 Physical Exam - Physical Exam General Appearance: no apparent distress EENT: No scleral icterus (R), No scleral icterus (L) Respiratory: lungs clear, normal breath sounds, No crackles, No rales, No rhonchi Cardiac/Chest: regular rate, rhythm, No diastolic murmur, No systolic murmur Abdomen: soft, No non-tender (tender in umbilical area), No distended, No guarding, No rebound Skin: normal color Neuro/Psych: alert, normal mood/affect, oriented x 3, abnormal line palletizer II-XII ICD10 Worksheet Patient Problems: Problems Problem Status Onset Chest pain Acute Abdominal pain Acute
[2017-11-27] MEDS: INSULIN GLARGINE 100 UNITS/ML UNIT SC SCH (22:39)
[2017-11-28] MEDS: ONDANSETRON 4 MG/2 ML VIAL IVP PRN (02:44)
[2017-11-28] MEDS: HYDROmorphONE/DILAUDID 1 MG/ML INJ IVP PRN ×6 (02:44→21:49)
[2017-11-28] MEDS: NS 1,000 ML IV SCH (05:45)
[2017-11-28] MEDS: PROMETHAZINE HCL 25 MG/ML INJ IVP SCH ×4 (05:46→22:57)
[2017-11-28 06:03] LABS: PLATELET COUNT 181 10^3/uL (150-400)
[2017-11-28] MEDS: PANTOPRAZOLE SODIUM 40 MG VIAL IVP SCH ×2 (08:35→21:49)
[2017-11-28] MEDS: METOPROLOL TARTRATE 100 MG TAB PO SCH ×2 (08:35→21:49)
[2017-11-28] MEDS: D5W 1/2 NS W/ 20 KCl/L 1,000 ML IV SCH ×2 (08:40→16:35)
[2017-11-28] MEDS: SUCRALFATE 1 GM/10 ML UDCUP PO SCH ×4 (09:28→21:48)
[2017-11-28] MEDS: CHOLECALCIFEROL VIT D3 1,000 UNITS TAB PO SCH (10:04)
[2017-11-28] MEDS: INSULIN LISPRO 100 UNIT/ML SC SCH ×7 (10:09→22:02)
--- NOTE | 2017-11-28 12:08 | HOSPPROG ---
Hospitalist Progress Note Assessment/Plan: # abd pain/N/V - did not respond to erythromycin - recent EGD with gastritis - she is requiring significant dilaudid IV - trying to wean today and use PO narcotics - start oxy PO and encourage this - cont protonix IV, trial of carafate and levsin - will keep her NPO while she is on narcotics IV # hypoK - argues that she is truly not taking PO - replete via IVF # melena - recent EGD; plans for outpatient colonoscopy # hypotension - resolved with IVF # sinus tachycardia - reports that she is on metop to control this not currently tachy # DM2 - glucs still elevated - cont insulin at lower dose given NPO status - cont glargine 110 hs, lispro 20 TID meal + SSI # morbid obesity - BMI 39 # RA - off treatment; will gather further details from her regarding this Subjective: "having a bad morning" Objective: Vital Signs Temp Pulse Resp BP Pulse Ox 36.3 C 69 12 118/69 87 L 11/28/17 11:19 11/28/17 11:19 11/28/17 11:19 11/28/17 11:19 11/28/17 11:19 Laboratory Results 11/28/17 05:54 11/28/17 05:54 11/27/17 11/28/17 11/29/17 05:59 05:59 05:59 Intake Total 2280 2750 Output Total 300 200 Balance 1979 2750 -200 PT 12.7 SEC (12.0-15.0) 11/25/17 01:50 INR 0.93 (0.83-1.16) 11/25/17 01:50 CORHIO reviewed - Physical Exam Constitutional: obese, uncomfortable Cardiovascular: regular rate and rhythym, no murmur, rub, or gallop Respiratory: no respiratory distress, no rales or rhonchi, clear to auscultation Gastrointestinal: other (soft, mild diffuse TTP), No guarding, No rebound ICD10 Worksheet Patient Problems: Problems Problem Status Onset Chest pain Acute Abdominal pain Acute
--- NOTE | 2017-11-28 21:21 | SOAPPROG ---
SOAP Progress Note Assessment/Plan: Assessment: Plan: 11/27/17 04:44 GI note See dictated consult note for details. Will start trial of Carafate and antispamsodic. No plans for EGD/colonoscopy etc. Will follow. 11/27/17 20:23 A/P 1. Abdominal pain- with nausea. Mildly improved. Will see how she does on trial of carafate and hyoscyamine. 11/28/17 21:18 A/P 1. Abdominal pain- with nausea. Intermittent melena. Not improved on trial of Carafate and antispasmodic. On PPI. Had similar episode at [facility]. Recent EGD at the end of September which was unrevealing. Multiple CT scans. Colonoscopy Feb 2016. Capsule endoscopy performed but pill did not leave the stomach. Will check a CT enterography. Will also consider repeat EGD but low yield due to recent EGD. R/b/a discussed with patient. Subjective: cc: Follow up with abdominal pain and nausea Still complaining of significant pain and nausea. Objective: Vital Signs Temp Pulse Resp BP Pulse Ox 37.1 C 79 16 117/78 94 11/28/17 19:14 11/28/17 19:14 11/28/17 19:14 11/28/17 19:14 11/28/17 19:14 Laboratory Results 11/28/17 05:54 11/28/17 05:54 11/27/17 11/28/17 11/29/17 05:59 05:59 05:59 Intake Total 2280 2750 Output Total 300 450 Balance 1980 2750 -450 PT 12.7 SEC (12.0-15.0) 11/25/17 01:50 INR 0.93 (0.83-1.16) 11/25/17 01:50 Physical Exam - Physical Exam General Appearance: mild distress EENT: No scleral icterus (R), No scleral icterus (L) Respiratory: lungs clear, normal breath sounds, No crackles, No rales Cardiac/Chest: regular rate, rhythm Abdomen: soft, No non-tender (tender in umbilicical area), No distended, No guarding, No rebound Skin: normal color, warm/dry Neuro/Psych: no motor/sensory deficits, oriented x 3, No abnormal straw hat brusher II-XII ICD10 Worksheet Patient Problems: Problems Problem Status Onset Chest pain Acute Abdominal pain Acute
[2017-11-28] MEDS: LORazepam 2 MG/ML INJ IVP PRN (21:49)
[2017-11-28] MEDS: INSULIN GLARGINE 100 UNITS/ML UNIT SC SCH (22:02)
[2017-11-29] MEDS ORDERED: ESTRADIOL VIVELLE 0.1 MG PATCH TD SCH (00:15)
[2017-11-29] MEDS: HYDROmorphONE/DILAUDID 1 MG/ML INJ IVP PRN ×3 (01:49→10:03)
[2017-11-29] MEDS: D5W 1/2 NS W/ 20 KCl/L 1,000 ML IV SCH ×2 (03:00→12:47)
[2017-11-29] MEDS: PROMETHAZINE HCL 25 MG/ML INJ IVP SCH ×2 (05:53→12:46)
[2017-11-29] MEDS ORDERED: methylPREDNISolone SOD SUCC 125 MG/2 ML VIAL IVP ONE (08:15)
[2017-11-29] MEDS: PANTOPRAZOLE SODIUM 40 MG VIAL IVP SCH (10:02)
[2017-11-29] MEDS: METOPROLOL TARTRATE 100 MG TAB PO SCH (10:03)
[2017-11-29] MEDS: INSULIN LISPRO 100 UNIT/ML SC SCH ×6 (10:04→17:33)
[2017-11-29] MEDS: ONDANSETRON 4 MG/2 ML VIAL IVP PRN (10:16)
[2017-11-29] MEDS: CHOLECALCIFEROL VIT D3 1,000 UNITS TAB PO SCH (10:26)
[2017-11-29] MEDS: LORazepam 2 MG/ML INJ IVP PRN (10:47)
[2017-11-29] MEDS: SUCRALFATE 1 GM/10 ML UDCUP PO SCH ×3 (10:47→17:33)
[2017-11-29] MEDS ORDERED: IOPAMIDOL (ISOVUE-300) 100 ML BTL ONE (10:50)
[2017-11-29] MEDS ORDERED: POTASSIUM Cl (KCl) 20 MEQ in 1/2 NS 1,000 ML IV SCH (13:30)
[2017-11-29 16:07] VITALS: BP 132/85
--- NOTE | 2017-11-29 17:05 | GDS ---
[f rep st] DISCHARGE SUMMARY ALL DIAGNOSES: 1. Abdominal pain of unclear etiology. 2. Hypokalemia. 3. Melena with plans for an outpatient EEG, outpatient colonoscopy. 4. Hypotension. 5. Sinus tachycardia. 6. Diabetes mellitus type 2. 7. Morbid obesity. ALL CONSULTATIONS: Gastroenterology, Dr. Hsu. HOSPITAL COURSE: A 42-year-old female presented with abdominal pain. She had recently been worked up as an outpatient with an EGD which showed some gastritis. She also had some intermittent complaints of melena, has additional plans for an outpatient colonoscopy. She was treated here conservatively. Seen by Gastroenterology. [place] that repeating an endoscopy would be very low yield. She had imaging of her abdomen which did not show any clear etiology. She had an abdominal CT scan which showed question of mild haziness of the central mesentery. She has had a cholecystectomy, appendectomy as well as small bowel resection as well as likely a benign lung nodule. She had CT enterography performed as well, which did not elucidate any etiology of her pain. She has been treated with Carafate as well as intravenous Dilaudid. On the day of discharge, she began to feel better, has tolerated a full lunch and feels ready to go home. I have given her Dilaudid 2 mg #10, Phenergan, prescriptions for hycosamine as well as Carafate. She already has plans to follow up with gastroenterology, Dr. Brennan, as an outpatient. I have encouraged her to keep this. She is comfortable with all these plans BILLING: I spent more than 30 minutes on the day of discharge coordinating care. /[id number]/MODL MTDD
--- NOTE | 2017-11-29 17:14 | SOAPPROG ---
SOAP Progress Note Assessment/Plan: Assessment: Plan: 11/27/17 04:44 GI note See dictated consult note for details. Will start trial of Carafate and antispamsodic. No plans for EGD/colonoscopy etc. Will follow. 11/27/17 20:23 A/P 1. Abdominal pain- with nausea. Mildly improved. Will see how she does on trial of carafate and hyoscyamine. 11/28/17 21:18 A/P 1. Abdominal pain- with nausea. Intermittent melena. Not improved on trial of Carafate and antispasmodic. On PPI. Had similar episode at [facility]. Recent EGD at the end of September which was unrevealing. Multiple CT scans. Colonoscopy Feb 2016. Capsule endoscopy performed but pill did not leave the stomach. Will check a CT enterography. Will also consider repeat EGD but low yield due to recent EGD. R/b/a discussed with patient. 11/29/17 16:41 1. A/P 1. Abdominal pain- with nausea. CT enterography unrevealing. Had recent EGD ( September 2017)with no cause found. Improved 30% since yesterday. Diet restarted. If tolerates, discharge soon. Continue PPI and antispasmodic. Will need repeat capsule as outpatient. If doesnt improve, will consider repeat EGD and this was discussed with patient. Subjective: cc: Follow up on abdominal pain Feeling 30% better. Diet restarted. Objective: Vital Signs Temp Pulse Resp BP Pulse Ox 36.9 C 75 16 132/85 H 88 L 11/29/17 16:00 11/29/17 16:00 11/29/17 16:00 11/29/17 16:00 11/29/17 16:00 Laboratory Results 11/28/17 05:54 11/29/17 06:00 11/28/17 11/29/17 11/30/17 05:59 05:59 05:59 Intake Total 2750 1200 Output Total 450 200 Balance 2750 750 -200 PT 12.7 SEC (12.0-15.0) 11/25/17 01:50 INR 0.93 (0.83-1.16) 11/25/17 01:50 Physical Exam - Physical Exam General Appearance: alert, no apparent distress EENT: No scleral icterus (R), No scleral icterus (L) Respiratory: lungs clear, normal breath sounds Cardiac/Chest: regular rate, rhythm Abdomen: soft, No non-tender (minimal tenderness in midepi) Skin: normal color, warm/dry Neuro/Psych: normal mood/affect, oriented x 3 ICD10 Worksheet Patient Problems: Problems Problem Status Onset Chest pain Acute Abdominal pain Acute
== END 2017-11-29 18:21 | disposition home or self-care (01) | DRG 392 ==
LOC: OBSVTOIN 11-25 03:04 → F3E 11-25 04:20
PROVIDERS: ADMIT Family Medicine; ATTEND Student in an Organized Health Care Education/Training Program
PROC: 02HV33Z Insertion of Infusion Device into Superior Vena Cava, Percutaneous Approach (ICD-10-PCS; principal; 2017-11-25)
DX: R10.9 Unspecified abdominal pain (principal); K92.1 Melena; E87.6 Hypokalemia; I95.9 Hypotension, unspecified; R00.0 Tachycardia, unspecified; E11.9 Type 2 diabetes mellitus without complications; M06.9 Rheumatoid arthritis, unspecified; K21.9 Gastro-esophageal reflux disease without esophagitis; G47.33 Obstructive sleep apnea (adult) (pediatric); E66.01 Morbid (severe) obesity due to excess calories; Z68.39 Body mass index [BMI] 39.0-39.9, adult; Z79.4 Long term (current) use of insulin
CPT/HCPCS: 82947-QW; 96374; 97165-GO; C1751; G0378; G8987-GO-CI; G8988-GO-CI; G8989-GO-CI; J0360; J1170; J1200; J1364; J1815; J2060; J2405; J2550; J2930; J3480; Q9967

== ENCOUNTER 2017-12-25 01:41 | Inpatient (IN) | payer OTHER ==
[2017-12-25] MEDS ORDERED: HYDROmorphONE/DILAUDID 2 MG/ML INJ IVP ONE ×2 (02:13→04:09)
[2017-12-25] MEDS ORDERED: NS 1,000 ML IV ONE (02:13)
[2017-12-25] MEDS ORDERED: PROMETHAZINE HCL 25 MG/ML INJ IVP ONE (02:15)
--- NOTE | 2017-12-25 02:19 | EDPHY ---
H & P Stated Complaint: abd pain, n/v Time Seen by Provider: 12/25/17 01:55 HPI/ROS: HPI The patient presents with abdominal pain, nausea and vomiting which began overnight last night. She said she generally was feeling unwell last night. When she awoke this morning she says her abdomen felt warm to her. She then had onset of left-sided periumbilical abdominal pain which has been present throughout the day today getting progressively worse. She took a dose of Zofran as well as the pain medication she was discharged from the hospital with. She vomited these medications and has had 3 episodes of vomiting in total. She also has had loose watery stools today. She has a history of this same pain, last at the end of November of this year. She was admitted to the hospital from November 25 to for the pain. She is being followed by Dr. Brennan of Gastroenterology. She has had an endoscopy which shows gastritis. She has had CT scans which have been nondiagnostic. Gastroparesis from her diabetes has been a possible diagnosis. She has been taking her medications as prescribed. She is awaiting a colonoscopy because she does have history of melena and father with colon cancer. REVIEW OF SYSTEMS Constitutional: No fever, no chills. Eyes: No discharge. ENT: No sore throat. Cardiovascular: No chest pain, no palpitations. Respiratory: No cough, no shortness of breath. Gastrointestinal: No abdominal pain, no vomiting. Genitourinary: No hematuria. Musculoskeletal: No back pain. Skin: No rashes. Neurological: No headache. PMHx: Type 2 diabetes on insulin, last hemoglobin A1c 8.7, endometriosis, asthma, history of appendectomy and cholecystectomy Soc Hx: Housed PHYSICAL General Appearance: Alert, no distress Eyes: Pupils equal and round no pallor or injection ENT, Mouth: Mucous membranes moist Respiratory: There are no retractions, lungs are clear to auscultation Cardiovascular: Tachycardic rate and regular rhythm Gastrointestinal: Abdomen is soft and tender in the periumbilical region without rebound or guarding Neurological: A&O, moves all extremities Skin: Warm and dry, no rashes Musculoskeletal: Neck is supple non tender Extremities: symmetrical, full range of motion Psychiatric: Patient is oriented X 3, there is no agitation Source: Patient Exam Limitations: No limitations - Personal History LMP (Females 10-55): Hysterectomy Tetanus Vaccine Date: 2014 - Medical/Surgical History Hx Asthma: Yes Hx Chronic Respiratory Disease: No Hx Diabetes: Yes Hx Cardiac Disease: No Hx Renal Disease: No Hx Cirrhosis: No Hx Alcoholism: No Hx HIV/AIDS: No Hx Splenectomy or Spleen Trauma: No Other PMH: KIDNEY STONES, ASTHMA, endometreosis, DVT, small bowel resection x2, migraine, DM type2. Gastroparesis. Appendectomy. Cholecystectomy - Social History Smoking Status: Never smoked Constitutional: Initial Vital Signs Temperature (C) 36.6 C 12/25/17 01:44 Heart Rate 119 H 12/25/17 01:44 Respiratory Rate 20 12/25/17 01:44 Blood Pressure 119/101 H 12/25/17 01:44 O2 Sat (%) 98 12/25/17 01:44 O2 Delivery Mode Nasal Cannula O2 (L/minute) 3 Allergies/Adverse Reactions: amoxicillin trihydrate [From Augmentin] Allergy (Verified 12/25/17 01:43) metoclopramide HCl [From Reglan] Allergy (Verified 12/25/17 01:43) Hives morphine Allergy (Verified 12/25/17 01:43) potassium clavulanate [From Augmentin] Allergy (Verified 12/25/17 01:43) prochlorperazine edisylate [From Compazine] Allergy (Verified 12/25/17 01:43) Psychosis prochlorperazine maleate [From Compazine] Allergy (Verified 12/25/17 01:43) Psychosis shellfish derived Allergy (Verified 12/25/17 01:43) CONTRAST DYE Allergy (Uncoded 12/25/17 01:43) Home Medications: Medication Instructions Recorded Insulin Lispro [humALOG LISPRO 100 20 unit SC TIDMEAL 12/02/15 units/ml (*)] Metoprolol Tartrate [Lopressor 100 100 mg PO BID 12/02/15 mg (*)] SUMAtriptan [Imitrex 50 MG (*)] 100 mg PO Q2H PRN 12/02/15 Albuterol [Proventil Inhaler HFA 1 - 2 puffs IH Q4H PRN 11/25/17 (*)] Cholecalciferol Vit D3 [Vitamin D3 1,000 units PO DAILY 11/25/17 (*)] Estradiol [Vivelle-Dot 0.1MG (*)] 0.1 mg TD WESA@0800 11/25/17 Insulin Degludec [Tresiba 180 unit SQ HS 11/25/17 Flextouch U-100] Pantoprazole Sodium [Protonix 40mg 40 mg PO BID 11/25/17 (*)] HYDROmorphone HCL [Dilaudid 2 mg 2 mg PO TID PRN #10 tab 11/29/17 (*)] Hyoscyamine Sulfate [Levsin, 0.125 mg PO Q6HRS PRN #30 tab 11/29/17 Hyomax-Sl 0.125 mg (*)] Ondansetron Odt [Zofran Odt 4 mg 4 mg PO Q4 #30 tab 11/29/17 (*)] Promethazine HCl [Phenergan 25mg 25 mg PO TID #30 tab 11/29/17 (*)] Sucralfate [Carafate 1 GM (*)] 1 gm PO ACHS #120 tab 11/29/17 Medical Decision Making - Diagnostics Imaging Results: KUB single view demonstrates no free air, no air-fluid levels, interpreted by me , radiology interpretation is pending. Imaging: I viewed and interpreted images myself Differential Diagnosis: 42-year-old female with history of type 2 diabetes, asthma, recurrent abdominal pain, with recent admission in November of this year, currently being followed by Gastroenterology with known gastritis, possible gastroparesis from her report. Here today with recurrent abdominal pain which feels identical to her prior episode at the end of November. Differential diagnosis includes gastritis, gastroparesis, small-bowel obstruction. In the emergency department, the patient was monitored for several hours. Labs were checked and were unremarkable except for hyperglycemia. KUB was performed which demonstrated no free air and no bowel pattern to suggest bowel obstruction. She received serial doses of Dilaudid with no improvement in her pain. She remains somewhat tachycardic though her heart rate improved from the 120s to 1 teens. I do not think she is suitable for discharge at this time. I plan to admit her to the hospitalist service and have discussed the case with Dr. Schwartz. - Data Points Laboratory Results: Laboratory Results 12/25/17 02:26 12/25/17 02:26 12/25/17 12/25/17 12/25/17 04:20 02:26 02:26 WBC 8.71 10^3/uL 10^3/uL (3.80-9.50) RBC 5.30 10^6/uL 10^6/uL (4.18-5.33) Hgb 16.3 g/dL g/dL (12.6-16.3) Hct 46.0 % % (38.0-47.0) MCV 86.8 fL fL (81.5-99.8) MCH 30.8 pg pg (27.9-34.1) MCHC 35.4 g/dL g/dL (32.4-36.7) RDW 12.2 % % (11.5-15.2) Plt Count 272 10^3/uL 10^3/uL (150-400) MPV 10.3 fL fL (8.7-11.7) Neut % (Auto) 48.5 % % (39.3-74.2) Lymph % (Auto) 39.2 % % (15.0-45.0) [place] % (Auto) 9.2 % % (4.5-13.0) Eos % (Auto) 2.3 % % (0.6-7.6) Baso % (Auto) 0.5 % % (0.3-1.7) Nucleat RBC Rel Count 0.0 % % (0.0-0.2) Absolute Neuts (auto) 4.23 10^3/uL 10^3/uL (1.70-6.50) Absolute Lymphs (auto) 3.41 10^3/uL H 10^3/uL (1.00-3.00) Absolute Monos (auto) 0.80 10^3/uL 10^3/uL (0.30-0.80) Absolute Eos (auto) 0.20 10^3/uL 10^3/uL (0.03-0.40) Absolute Basos (auto) 0.04 10^3/uL 10^3/uL (0.02-0.10) Absolute Nucleated RBC 0.00 10^3/uL 10^3/uL (0-0.01) Immature Gran % 0.3 % % (0.0-1.1) Immature Gran # 0.03 10^3/uL 10^3/uL (0.00-0.10) Sodium 139 mEq/L mEq/L (135-145) Potassium 4.0 mEq/L mEq/L (3.3-5.0) Chloride 101 mEq/L mEq/L (97-110) Carbon Dioxide 20 mEq/l L mEq/l (22-31) Anion Gap 18 mEq/L H mEq/L (8-16) BUN 19 mg/dL mg/dL (7-23) Creatinine 0.7 mg/dL mg/dL (0.6-1.0) Estimated GFR > 60 Glucose 328 mg/dL H mg/dL (70-100) Calcium 9.9 mg/dL mg/dL (8.5-10.4) Total Bilirubin 0.6 mg/dL mg/dL (0.1-1.4) Conjugated Bilirubin 0.5 mg/dL mg/dL (0.0-0.5) Unconjugated Bilirubin 0.1 mg/dL mg/dL (0.0-1.1) AST 29 IU/L IU/L (14-46) ALT 39 IU/L IU/L (9-52) Alkaline Phosphatase 152 IU/L H IU/L (38-126) Total Protein 7.8 g/dL g/dL (6.3-8.2) Albumin 4.2 g/dL g/dL (3.5-5.0) Lipase 175 IU/L IU/L (23-300) Urine Color YELLOW Urine Appearance CLEAR Urine pH 5.0 (5.0-7.5) Ur Specific [place] 1.031 H (1.002-1.030) Urine Protein NEGATIVE (NEGATIVE) Urine Ketones NEGATIVE (NEGATIVE) Urine Blood NEGATIVE (NEGATIVE) Urine Nitrate NEGATIVE (NEGATIVE) Urine Bilirubin NEGATIVE (NEGATIVE) Urine Urobilinogen NEGATIVE EU EU (0.2-1.0) Ur Leukocyte Esterase NEGATIVE (NEGATIVE) Urine RBC 1-3 /hpf /hpf (0-3) Urine WBC 1-3 /hpf /hpf (0-3) Ur Epithelial Cells TRACE /lpf /lpf (NONE-1+) Urine Bacteria TRACE /hpf H /hpf (NONE SEEN) Urine Mucus TRACE /lpf /lpf (NONE-1+) Urine Glucose 3+ H (NEGATIVE) Medications Given: Insulin Glargine (Lantus Syringe) 60 units SC DAILY ABBY Stop: 06/23/18 04:59 Last Admin: 12/25/17 05:58 Dose: 60 units Discontinued Medications Hydromorphone HCl (Dilaudid) 0.5 mg IVP EDNOW ONE Stop: 12/25/17 02:14 Last Admin: 12/25/17 02:29 Dose: 0.5 mg Hydromorphone HCl (Dilaudid) 0.5 mg IVP EDNOW ONE Stop: 12/25/17 03:08 Last Admin: 12/25/17 03:12 Dose: 0.5 mg Hydromorphone HCl (Dilaudid) 0.5 mg IVP EDNOW ONE Stop: 12/25/17 04:10 Last Admin: 12/25/17 04:12 Dose: 0.5 mg Hydromorphone HCl (Dilaudid) 0.2 - 0.4 mg IVP Q4HRS PRN PRN Reason: Pain, Severe Unable to Take PO Stop: 01/04/18 04:14 Last Admin: 12/25/17 05:54 Dose: 0.4 mg Sodium Chloride (Ns) 1,000 mls @ 0 mls/hr IV EDNOW ONE; Wide Open PRN Reason: Protocol Stop: 12/25/17 02:14 Last Admin: 12/25/17 02:29 Dose: 1,000 mls Ondansetron HCl (Zofran) 4 mg IVP EDNOW ONE Stop: 12/25/17 04:10 Last Admin: 12/25/17 04:10 Dose: 4 mg Promethazine HCl (Phenergan) 12.5 mg IVP ONCE ONE Stop: 12/25/17 02:16 Last Admin: 12/25/17 02:29 Dose: 12.5 mg Departure - Departure Disposition: [facility] Referrals: Luis De La Cruz [Primary Care Provider] - As per Instructions
[2017-12-25 02:34] LABS: PLATELET COUNT 272 10^3/uL (150-400)
[2017-12-25] MEDS ORDERED: HYDROmorphONE/DILAUDID 1 MG/ML INJ IVP ONE ×4 (03:07→13:43)
[2017-12-25] MEDS ORDERED: ONDANSETRON 4 MG/2 ML VIAL ONE (04:08)
[2017-12-25] MEDS ORDERED: HYDROmorphONE/DILAUDID 1 MG/ML INJ ONE (04:08)
[2017-12-25] MEDS ORDERED: ONDANSETRON 4 MG/2 ML VIAL IVP ONE (04:09)
[2017-12-25] MEDS ORDERED: ACETAMINOPHEN 325 MG TAB PO PRN (04:15)
[2017-12-25] MEDS ORDERED: HYDROmorphONE/DILAUDID 2 MG TAB PO PRN (04:15)
[2017-12-25] MEDS ORDERED: HYDROmorphONE/DILAUDID 1 MG/ML INJ IVP PRN (04:15)
[2017-12-25] MEDS ORDERED: ONDANSETRON DISINTEGRATING 4 MG TAB PO PRN ×2 (04:15→10:09)
[2017-12-25] MEDS ORDERED: D50W 25 GM/50 ML SYR IVP PRN (05:00)
[2017-12-25] MEDS ORDERED: PROMETHAZINE HCL 25 MG/ML INJ IVP PRN (05:01)
--- NOTE | 2017-12-25 05:06 | PDGENHP ---
History and Physical - Chief Complaint Abdominal pain - History of Present Illness 42 yo obese F w/ IDDM, endometriosis, ?RA presents with recurrent abdominal pain. Patient was admitted here in November for similar presentation. She has been dealing with unexplained abdominal pain for several months. She describes "hot" and "burning" epigastric pain of unbearable severity associated with vomiting. She had done quite well after leaving the hospital in November but the pain returned this morning in a severe fashion. She took some Dilaudid PO she had at home but was unable to keep the medication down so she came to the ED. In the ED her laboratory work-up has been reassuring aside from hyperglycemia. She feels more comfortable after Dilaudid IV and nausea medication. Her last colonoscopy was on 02/20; she had a tubular adenoma at that time. Her last EGD was on 09/22; this was fairly unrevealing but notable for gastritis. A pill endoscopy was attempted in October of 2017 but the capsule did not leave the stomach. She has a repeat colonoscopy scheduled as an outpatient for 01/01. History Information - Allergies/Home Medication List Allergies/Adverse Reactions: amoxicillin trihydrate [From Augmentin] Allergy (Verified 12/25/17 01:43) metoclopramide HCl [From Reglan] Allergy (Verified 12/25/17 01:43) Hives morphine Allergy (Verified 12/25/17 01:43) potassium clavulanate [From Augmentin] Allergy (Verified 12/25/17 01:43) prochlorperazine edisylate [From Compazine] Allergy (Verified 12/25/17 01:43) Psychosis prochlorperazine maleate [From Compazine] Allergy (Verified 12/25/17 01:43) Psychosis shellfish derived Allergy (Verified 12/25/17 01:43) CONTRAST DYE Allergy (Uncoded 12/25/17 01:43) Home Medications: Insulin Lispro [humALOG LISPRO 100 units/ml (*)] 20 unit SC TIDMEAL 12/02/15 [ Last Taken 11/24/17 18:00] Metoprolol Tartrate [Lopressor 100 mg (*)] 100 mg PO BID 12/02/15 [Last Taken 21:00] SUMAtriptan [Imitrex 50 MG (*)] 100 mg PO Q2H PRN 12/02/15 [Last Taken 11/23/17] Albuterol [Proventil Inhaler HFA (*)] 1 - 2 puffs IH Q4H PRN 11/25/17 [Last Taken 11/24/17] Cholecalciferol Vit D3 [Vitamin D3 (*)] 1,000 units PO DAILY 11/25/17 [Last Taken Unknown] Estradiol [Vivelle-Dot 0.1MG (*)] 0.1 mg TD WESA@0800 11/25/17 [Last Taken 11/23] Insulin Degludec [Tresiba Flextouch U-100] 180 unit SQ HS 11/25/17 [Last Taken 11/24/17] Pantoprazole Sodium [Protonix 40mg (*)] 40 mg PO BID 11/25/17 [Last Taken 09:00] I have personally reviewed and updated: family history, medical history - Past Medical History diabetes type 2 Additional medical history: Endometriosis. ?RA. Obesity - Surgical History Reports: appendectomy, hysterectomy - Family History Positive for: diabetes type II - Social History Smoking Status: Never smoked Review of Systems Review of Systems: ROS: 10pt was reviewed & negative except for what was stated in HPI & below Physical Exam Physical Exam: Temp Pulse Resp BP Pulse Ox 36.6 C 117 H 18 107/79 94 12/25/17 01:44 12/25/17 04:00 12/25/17 04:00 12/25/17 04:00 12/25/17 04:00 Constitutional: obese, uncomfortable Eyes: PERRL, EOMI Ears, Nose, Mouth, Throat: moist mucous membranes, no oral mucosal ulcers Cardiovascular: no murmur, rub, or gallop, tachycardia Respiratory: no respiratory distress, clear to auscultation Gastrointestinal: tenderness (Diffuse), No guarding, No rebound Skin: warm, normal color Musculoskeletal: full muscle strength, no muscle tenderness Neurologic: AAOx3, CN II-XII Intact Psychiatric: interacting appropriately, not anxious Lab Data & Imaging Review 12/25/17 02:26 12/25/17 02:26 WBC 8.71 10^3/uL (3.80-9.50) 12/25/17 02:26 RBC 5.30 10^6/uL (4.18-5.33) 12/25/17 02:26 Hgb 16.3 g/dL (12.6-16.3) 12/25/17 02:26 Hct 46.0 % (38.0-47.0) 12/25/17 02:26 MCV 86.8 fL (81.5-99.8) 12/25/17 02:26 MCH 30.8 pg (27.9-34.1) 12/25/17 02:26 MCHC 35.4 g/dL (32.4-36.7) 12/25/17 02:26 RDW 12.2 % (11.5-15.2) 12/25/17 02:26 Plt Count 272 10^3/uL (150-400) 12/25/17 02:26 MPV 10.3 fL (8.7-11.7) 12/25/17 02:26 Neut % (Auto) 48.5 % (39.3-74.2) 12/25/17 02:26 Lymph % (Auto) 39.2 % (15.0-45.0) 12/25/17 02:26 [place] % (Auto) 9.2 % (4.5-13.0) 12/25/17 02:26 Eos % (Auto) 2.3 % (0.6-7.6) 12/25/17 02: Baso % (Auto) 0.5 % (0.3-1.7) 12/25/17 02:26 Nucleat RBC Rel Count 0.0 % (0.0-0.2) 12/25/17 02:26 Absolute Neuts (auto) 4.23 10^3/uL (1.70-6.50) 12/25/17 02:26 Absolute Lymphs (auto) 3.41 10^3/uL (1.00-3.00) H 12/25/17 02:26 Absolute Monos (auto) 0.80 10^3/uL (0.30-0.80) 12/25/17 02:26 Absolute Eos (auto) 0.20 10^3/uL (0.03-0.40) 12/25/17 02:26 Absolute Basos (auto) 0.04 10^3/uL (0.02-0.10) 12/25/17 02:26 Absolute Nucleated RBC 0.00 10^3/uL (0-0.01) 12/25/17 02:26 Immature Gran % 0.3 % (0.0-1.1) 12/25/17 02:26 Immature Gran # 0.03 10^3/uL (0.00-0.10) 12/25/17 02:26 Sodium 139 mEq/L (135-145) 12/25/17 02:26 Potassium 4.0 mEq/L (3.3-5.0) 12/25/17 02:26 Chloride 101 mEq/L (97-110) 12/25/17 02:26 Carbon Dioxide 20 mEq/l (22-31) L 12/25/17 02:26 Anion Gap 18 mEq/L (8-16) H 12/25/17 02:26 BUN 19 mg/dL (7-23) 12/25/17 02:26 Creatinine 0.7 mg/dL (0.6-1.0) 12/25/17 02:26 Estimated GFR > 60 12/25/17 02:26 Glucose 328 mg/dL (70-100) H 12/25/17 02:26 Calcium 9.9 mg/dL (8.5-10.4) 12/25/17 02:26 Total Bilirubin 0.6 mg/dL (0.1-1.4) 12/25/17 02:26 Conjugated Bilirubin 0.5 mg/dL (0.0-0.5) 12/25/17 02:26 Unconjugated Bilirubin 0.1 mg/dL (0.0-1.1) 12/25/17 02:26 AST 29 IU/L (14-46) 12/25/17 02:26 ALT 39 IU/L (9-52) 12/25/17 02:26 Alkaline Phosphatase 152 IU/L (38-126) H 12/25/17 02:26 Total Protein 7.8 g/dL (6.3-8.2) 12/25/17 02:26 Albumin 4.2 g/dL (3.5-5.0) 12/25/17 02:26 Lipase 175 IU/L (23-300) 12/25/17 02:26 Urine Color YELLOW 12/25/17 04:20 Urine Appearance CLEAR 12/25/17 04:20 Urine pH 5.0 (5.0-7.5) 12/25/17 04:20 Ur Specific [place] 1.031 (1.002-1.030) H 12/25/17 04:20 Urine Protein NEGATIVE (NEGATIVE) 12/25/17 04:20 Urine Ketones NEGATIVE (NEGATIVE) 12/25/17 04:20 Urine Blood NEGATIVE (NEGATIVE) 12/25/17 04:20 Urine Nitrate NEGATIVE (NEGATIVE) 12/25/17 04:20 Urine Bilirubin NEGATIVE (NEGATIVE) 12/25/17 04:20 Urine Urobilinogen NEGATIVE EU (0.2-1.0) 12/25/17 04:20 Ur Leukocyte Esterase NEGATIVE (NEGATIVE) 12/25/17 04:20 Urine RBC 1-3 /hpf (0-3) 12/25/17 04:20 Urine WBC 1-3 /hpf (0-3) 12/25/17 04:20 Ur Epithelial Cells TRACE /lpf (NONE-1+) 12/25/17 04:20 Urine Bacteria TRACE /hpf (NONE SEEN) H 12/25/17 04:20 Urine Mucus TRACE /lpf (NONE-1+) 12/25/17 04:20 Urine Glucose 3+ (NEGATIVE) H 12/25/17 04:20 Assessment & Plan Assessment: 42 yo obese F w/ IDDM, endometriosis, ?RA presents with recurrent abdominal pain. Plan: 1. Abdominal pain - Recurrent for several months now with still uncertain etiology. Patient describes severe, epi-gastric, burning pain associated with vomiting. Considerations for etiology currently include gastroparesis vs. gastritis vs. autoimmune disease vs. psychiatric. Laboratory work-up in the ED reassuring. Last EGD in September of 2017 showed only gastritis. Colonoscopy in 2015 showed tubular adenoma. Pill endoscopy in October of 2017 was unsuccessful. She is s/p appendectomy and hysterectomy. - Abdominal XR to evaluate for obstruction or free air - Will defer further imaging at this time noting prior CT scans have been unrevealing, would consider if symptoms not improving conservatively - Pain control and anti-emetics for symptom control - Patient has good outpatient follow-up in place (colonoscopy scheduled for 01/01 ). If symptoms not adequately controlled, however, it may be worthwhile to consult GI inpatient for expedited management 2. IDDM - Patient manages BG w/ insulin lispro 20 u TID + insulin degludec 180 units nightly as an outpatient. - Insulin glargine 60 u BID + SSI high protocol for now noting patient having minimal PO intake - BG ACHS + D50 IV PRN for hypoglycemia ordered - Titrate insulin as necessary 3. ?RA - Patient states she was on MTX briefly but discontinued after she started having abdominal pain. Diet - NPO, ADAT Code - Full Ppx - SCDs Dispo - Admit under observation status
[2017-12-25] MEDS: INSULIN GLARGINE 100 UNITS/ML UNIT SC SCH ×3 (05:58→21:57)
[2017-12-25] MEDS: HYDROmorphONE/DILAUDID 1 MG/ML INJ IVP PRN ×4 (08:04→23:44)
[2017-12-25] MEDS: INSULIN LISPRO 100 UNIT/ML SC SCH ×6 (08:06→18:06)
[2017-12-25] MEDS: ONDANSETRON 4 MG/2 ML VIAL IVP PRN ×3 (08:26→21:02)
[2017-12-25] MEDS ORDERED: DICLOFENAC SODIUM 1% 100 GM GEL TP PRN (10:09)
[2017-12-25] MEDS ORDERED: ALBUTEROL 3 ML DEYVIAL IH PRN (10:09)
[2017-12-25] MEDS ORDERED: SUMAtriptan 50 MG TAB PO PRN (10:09)
[2017-12-25] MEDS ORDERED: ALBUTEROL 60 PUFFS/8 GM MDI IH PRN (10:09)
[2017-12-25] MEDS ORDERED: methylPREDNISolone SOD SUCC 40 MG/ML VIAL IVP ONE (10:19)
[2017-12-25] MEDS ORDERED: INSULIN LISPRO 100 UNIT/ML SC ONE (10:34)
--- NOTE | 2017-12-25 10:34 | HOSPPROG ---
Hospitalist Progress Note Assessment/Plan: # abd pain - recurrent; significant workup in the past including colonoscopy, recent EGD, abd CT scans, capsule endoscopy - recent CT with mild enteritis; recent EGD with mild gastritis - recent GI eval did not recommend repeat EGD - trial of steroids given another inflammatory disorder - cont narcotics IV, will try not to escalate - consider ketamine later today - cont IVF # sinus tachycardia - driven by pain; on metop # DM2 - hyperglycemia - cont glargine 60 bid, lispro 20 tidmeal - follow closely while NPO, will give a one time dose of lispro 10U now # morbid obesity - BMI 39 # RA - off treatment; will gather further details from her regarding this Subjective: writhing in pain; vomiting Objective: Vital Signs Temp Pulse Resp BP Pulse Ox 36.8 C 127 H 15 129/91 H 96 12/25/17 07:50 12/25/17 07:50 12/25/17 07:50 12/25/17 07:50 12/25/17 07:50 12/24/17 12/25/17 12/26/17 05:59 05:59 05:59 Intake Total 1000 0 Balance 1000 0 30 minutes of direct patient care time spent evaluating abdominal pain - Physical Exam Constitutional: uncomfortable Gastrointestinal: other (soft, no guarding or rebound, normal BS; ) ICD10 Worksheet Patient Problems: Problems Problem Status Onset Chest pain Acute Abdominal pain Acute
[2017-12-25] MEDS: PROMETHAZINE HCL 25 MG/ML INJ IVP PRN ×2 (11:09→19:31)
[2017-12-25] MEDS: NS 1,000 ML IV SCH (11:10)
[2017-12-25] MEDS: HYDROmorphone HCL/NS 0.5 MG/ML SYR IVP PRN ×3 (13:27→19:31)
[2017-12-25] MEDS ORDERED: PROMETHAZINE HCL 25 MG SUPPR PR ONE ×2 (13:31→13:46)
[2017-12-25] MEDS ORDERED: ALTEPLASE 2 MG VIAL IVP PRN (13:44)
[2017-12-25] MEDS ORDERED: KETAMINE 200 MG/20 ML VIAL IVP ONE (13:48)
[2017-12-25] MEDS ORDERED: KETAMINE IVP ONE (14:00)
[2017-12-25] MEDS ORDERED: KETAMINE 500 MG/10 ML VIAL IV ONE (14:00)
[2017-12-25] MEDS: ATORVASTATIN CALCIUM 40 MG TAB PO SCH (21:49)
[2017-12-25] MEDS: METOPROLOL TARTRATE 100 MG TAB PO SCH (21:50)
[2017-12-25] MEDS: PANTOPRAZOLE SODIUM 40 MG TAB PO SCH (21:50)
[2017-12-26] MEDS: NS 1,000 ML IV SCH ×2 (00:48→21:43)
[2017-12-26] MEDS: PROMETHAZINE HCL 25 MG/ML INJ IVP PRN ×4 (00:49→18:53)
[2017-12-26] MEDS: ONDANSETRON 4 MG/2 ML VIAL IVP PRN ×4 (02:11→22:57)
[2017-12-26] MEDS: HYDROmorphONE/DILAUDID 1 MG/ML INJ IVP PRN ×10 (02:15→22:56)
[2017-12-26] MEDS: CHOLECALCIFEROL VIT D3 1,000 UNITS TAB PO SCH (08:42)
[2017-12-26] MEDS: PANTOPRAZOLE SODIUM 40 MG TAB PO SCH ×2 (08:42→20:26)
[2017-12-26] MEDS: CETIRIZINE 10 MG TAB PO SCH (08:42)
[2017-12-26] MEDS: METOPROLOL TARTRATE 100 MG TAB PO SCH ×2 (08:42→17:54)
[2017-12-26] MEDS: INSULIN GLARGINE 100 UNITS/ML UNIT SC SCH ×2 (09:17→20:28)
[2017-12-26] MEDS: INSULIN LISPRO 100 UNIT/ML SC SCH ×6 (09:19→17:34)
--- NOTE | 2017-12-26 09:45 | ASMTCMCOM ---
CM Note CM Note Notes: Pt in for severe abdominal pain. D/c from [facility] independent in November for similar issues. OT pending. CM to follow. Date Signed: 12/26/2017 09:45 AM Electronically Signed By:YIFAN Marshall
--- NOTE | 2017-12-26 12:11 | PDRADPN ---
Radiology Procedure Note Date of Procedure: 12/26/17 Radiologist: Osbaldo Heller Anesthesia: Local (Specify) Pre-op Diagnosis: suboptimal venous acces Post-op Diagnosis: same Indication: secure venous access Procedure: RUE PICC Finding(s): 43cm PICC reaches the mid SVC. ok to use. Inf/Abcess present in the surg proc area at time of surgery?: No Complications: none
[2017-12-26 12:32] LABS: PLATELET COUNT 238 10^3/uL (150-400)
--- NOTE | 2017-12-26 14:49 | HOSPPROG ---
Hospitalist Progress Note Assessment/Plan: # abd pain with vomiting - recurrent; significant workup in the past including colonoscopy, recent EGD, abd CT scans, capsule endoscopy - recent CT with mild enteritis; recent EGD with mild gastritis - recent GI eval did not recommend repeat EGD - steroids did not help (tried given her hx of RA) - received ketamine without significant improvement - cont narcotics IV for now - will try to deescalate soon - cont IVF - she has an appointment for a colonoscopy at the end of the month as an outpatient with Dr Brennan - notably she improved rapidly on her last admit with conservative measures # sinus tachycardia - chronic - she is on metop for this but not taking it d/t emesis # mild leukocytosis - recheck tomorrow, maybe steroid effect # DM2 - hyperglycemia despite being NPO - cont glargine 60 bid, lispro 20 tidmeal - will not increase insulin today in case this is in part driven by steroids - may need to increase tomorrow # morbid obesity - BMI 39 # RA - off treatment; will gather further details from her regarding this Subjective: reports that she feels lsightly better than yesterday Objective: Vital Signs Temp Pulse Resp BP Pulse Ox 37.1 C 103 H 18 150/98 H 97 12/26/17 11:55 12/26/17 11:55 12/26/17 11:55 12/26/17 11:55 12/26/17 11:55 Laboratory Results 12/26/17 12:07 12/26/17 12:07 12/25/17 12/26/17 12/27/17 05:59 05:59 05:59 Intake Total 1000 1400 Output Total 2850 100 Balance 1000 -1450 -100 high risk on iv narcotics - Physical Exam Constitutional: uncomfortable (actively vomiting) Eyes: anicteric sclera Ears, Nose, Mouth, Throat: hearing normal Cardiovascular: no murmur, rub, or gallop, tachycardia Respiratory: no respiratory distress, no rales or rhonchi, clear to auscultation Gastrointestinal: soft, non-tender abdomen Skin: mottled Neurologic: AAOx3 Psychiatric: flat affect ICD10 Worksheet Patient Problems: Problems Problem Status Onset Chest pain Acute Abdominal pain Acute
--- NOTE | 2017-12-26 15:07 | PDMN ---
Medical Necessity Medical necessity: MCG M05 abd pain undg. acute abd pain perisistent with vomiting- recurrent, req IV pain meds, Zofran, Phenergan, fluids, mild leukocytosis, NPO status, in pt with DM II, PICC line placed. further monitoring and tx needed > 2 MN status changed to INPT 12/26/17 @ 14:50
[2017-12-26] MEDS ORDERED: ESTRADIOL VIVELLE 0.1 MG PATCH TD SCH (15:15)
[2017-12-26] MEDS: ATORVASTATIN CALCIUM 40 MG TAB PO SCH (20:26)
[2017-12-27] MEDS: PROMETHAZINE HCL 25 MG/ML INJ IVP PRN ×2 (01:16→18:26)
[2017-12-27] MEDS: HYDROmorphONE/DILAUDID 1 MG/ML INJ IVP PRN ×8 (01:17→21:43)
[2017-12-27] MEDS: ONDANSETRON 4 MG/2 ML VIAL IVP PRN ×2 (04:34→08:14)
[2017-12-27 04:59] LABS: PLATELET COUNT 222 10^3/uL (150-400)
[2017-12-27] MEDS: METOPROLOL TARTRATE 100 MG TAB PO SCH ×2 (08:13→21:48)
[2017-12-27] MEDS: NS 1,000 ML IV SCH ×2 (08:16→18:21)
[2017-12-27] MEDS: INSULIN LISPRO 100 UNIT/ML SC SCH ×6 (09:14→18:31)
[2017-12-27] MEDS: CETIRIZINE 10 MG TAB PO SCH (09:19)
[2017-12-27] MEDS: CHOLECALCIFEROL VIT D3 1,000 UNITS TAB PO SCH (09:19)
[2017-12-27] MEDS: PANTOPRAZOLE SODIUM 40 MG TAB PO SCH ×2 (09:19→21:51)
[2017-12-27] MEDS: INSULIN GLARGINE 100 UNITS/ML UNIT SC SCH ×2 (09:23→21:52)
[2017-12-27] MEDS: ERYTHROMYCIN BASE 250 MG TAB PO SCH ×2 (11:50→18:22)
--- NOTE | 2017-12-27 17:07 | HOSPPROG ---
Hospitalist Progress Note Assessment/Plan: Subjective None patient states she is feeling little bit better today but still with significant nausea. Asked her about her allergy to Reglan and she states this was usually prescribed for migraine headaches in the past. It was not used for gastroparesis. I did ask her about the possibility of gastroparesis and she states this has been considered by other doctors in the past as well. We discussed trying erythromycin and she seemed agreeable to give this a trial to see if it would help her symptoms. She does have ongoing follow-up with Dr. Brennan. No fevers or chills noted. Objective Vital signs as detailed below Physical exam General-patient resting comfortably in bed on my evaluation she was conversant but seems somewhat uncomfortable due to nausea Heart-regular rate and rhythm no murmurs appreciated Lungs-Clear to auscultation with normal respiratory effort Abdomen-nondistended bowel sounds present somewhat diminished. -no Turner catheter in place Extremities-no significant edema Labs as detailed below Assessment plan Abdominal pain-seems reasonably well controlled with the current pain regimen. Patient states she will try to taper down on her narcotic pain medications as her symptoms hopefully chidi. I suspect she may have gastroparesis and will trial erythromycin. Acute hypoxic respiratory failure-patient is not on oxygen therapy at home but needing a small amount here. wean as able. Possibly related to atelectasis. Tachycardia-possibly some related to hypovolemia. Improved today with a heart rate in 80s and 90s. Leukocytosis resolved with her white blood cell count going from 11-8. Elevated blood pressures-somewhat labile blood pressure readings likely related to her discomfort. No antihypertensive therapy at this point time will continue to follow. Diabetes mellitus type 2-insulin dependent. Uncertain control. Will check a hemoglobin A1c with her morning labs. Rheumatoid arthritis-not on any medical therapy at the present time. DVT prophylaxis-Lovenox Disposition-likely will be able for discharge home when she can tolerate a diet. Objective: Vital Signs Temp Pulse Resp BP Pulse Ox 36.9 C 71 17 114/67 97 12/27/17 16:00 12/27/17 16:00 12/27/17 16:00 12/27/17 16:00 12/27/17 16:00 Laboratory Results 12/27/17 04:30 12/26/17 12/27/17 12/28/17 05:59 05:59 05:59 Intake Total 2400 Output Total 0930 800 Balance 550 -800 ICD10 Worksheet Patient Problems: Problems Problem Status Onset Abdominal pain Acute Chest pain Acute
[2017-12-27] MEDS: ATORVASTATIN CALCIUM 40 MG TAB PO SCH (21:57)
[2017-12-28] MEDS: HYDROmorphONE/DILAUDID 1 MG/ML INJ IVP PRN ×2 (00:26→04:10)
[2017-12-28] MEDS: PROMETHAZINE HCL 25 MG/ML INJ IVP PRN (00:43)
[2017-12-28] MEDS ORDERED: PROMETHAZINE HCL 25 MG/ML INJ IVP PRN (01:28)
[2017-12-28] MEDS: NS 1,000 ML IV SCH (04:52)
[2017-12-28 07:31] VITALS: BP 120/67
[2017-12-28] MEDS ORDERED: ESTRADIOL VIVELLE 0.1 MG PATCH TD SCH ×2 (08:00)
[2017-12-28] MEDS: INSULIN LISPRO 100 UNIT/ML SC SCH ×2 (08:07)
[2017-12-28] MEDS ORDERED: HYDROmorphONE/DILAUDID 1 MG/ML INJ IVP PRN (08:20)
[2017-12-28] MEDS ORDERED: INSULIN GLARGINE 100 UNITS/ML UNIT SC SCH ×2 (08:21)
[2017-12-28] MEDS: ERYTHROMYCIN BASE 250 MG TAB PO SCH (09:03)
[2017-12-28] MEDS: PANTOPRAZOLE SODIUM 40 MG TAB PO SCH (09:05)
[2017-12-28] MEDS: METOPROLOL TARTRATE 100 MG TAB PO SCH (09:05)
--- NOTE | 2017-12-28 10:17 | GDS ---
[f rep st] DISCHARGE SUMMARY DISCHARGE DIAGNOSIS: Possible gastroparesis. HISTORY OF PRESENT ILLNESS: The patient is a pleasant 42-year-old female with a past medical history of insulin-dependent diabetes mellitus, who has had ongoing abdominal issues over the past year. Lico soria was recently in the hospital at [facility] in November of this year with a very similar presentation of abdominal pain with nausea. She has had consultation from Gastroenterology and has a n upcoming followup with Dr. Brennan on the of this month. She has had previous endoscopy and col onoscopy, as well as including a capsule endoscopy in October of this year. We entertained the possibi lity of gastroparesis and opted to start her on erythromycin. After trying for 1 day, she did not fe el like it was making anything worse. She was actually asking to be discharged home today, stating t hat she felt good enough to return home. We discussed continuing the erythromycin for now until her followup with Dr. Brennan for further recommendations. She was agreeable to this plan. Otherwise, the re were no medication changes during this hospitalization. HOSPITAL COURSE: 1. Abdominal pain, possible gastroparesis. Will continue with a trial of erythromycin for now. She has a listed allergy to Reglan, which was used previously for headaches. 2. Elevated blood pressure. She had elevated blood pressures at times during the hospitalization, b ut this seemed to be related to her abdominal discomfort. Her blood pressure was 120/67 at the time of discharge. 3. Leukocytosis, resolved. 4. Tachycardia, resolved, likely stress response. 5. Chronic hypoxic respiratory failure. Patient is on nocturnal oxygen. 6. Diabetes mellitus type 2. No adjustments were made to her insulin regimen. 7. DVT prophylaxis. Patient was on Lovenox during this hospitalization. DISPOSITION: The patient appears stable for discharge home today, to gradually escalate her diet at home. I would recommend a followup visit with her primary provider, Dr. Luis De La Cruz, in the coming 1-2 weeks after she has consulted with Dr. Brennan. EXAM: VITAL SIGNS: On day of discharge, temperature 36.5, blood pressure 120/67, heart rate 87, res pirations 17, saturating 96%, 3 L nasal cannula while sleeping. GENERAL: The patient appears comfor table. She is awake, alert, conversant, no acute distress. HEART: Regular. No murmurs noted. LUNG S: Clear to auscultation, with normal respiratory effort. ABDOMEN: Obese, soft. No significant te nderness elicited with palpation. Bowel sounds slightly diminished. : No Turner catheter in place . EXTREMITIES: No significant pitting edema. NOTABLE STUDIES: Abdominal x-ray, 12/25/2017, mild constipation, no pneumoperitoneum or bowel obstru ction. Chest x-ray, 12/26/2017: Satisfactory positioning of right arm PICC line. White blood cell count we nt from 11 to 8, hemoglobin 13, platelets 222. Sedimentation rate 20. Last 4 glucose checks were 86 , 173, 150, and 175. DISCHARGE MEDICATIONS: 1. Erythromycin 250 mg 3 times a day with meals. 2. Imitrex 100 mg as needed for migraines. 3. Metoprolol 100 mg twice a day. 4. Humalog lispro 20 units subcutaneously 3 times a day with meals. 5. Tresiba insulin 180 units nightly. 6. Protonix 40 mg twice a day. 7. Vitamin D supplementation. 8. Estradiol 0.1 mg twice a week. 9. Albuterol inhaler as needed. 10. Dilaudid 2 mg 3 times a day as needed. 11. Zyrtec 10 mg daily. 12. Atorvastatin 40 mg nightly. 13. Zofran 4 mg every 4 hours as needed. 14. Promethazine 25 mg 3 times a day as needed. 15. Diclofenac gel. DISCHARGE INSTRUCTIONS: I recommend that she keep her upcoming GI consultation with Dr. Brennan, and I recommend a followup visit in 1-[address] Luis De La Cruz, her primary care provider. Forty minutes of time dedicated to discharge efforts. Copy requested to: Dr. Luis Brennan /[id number]/MODL
--- NOTE | 2017-12-28 16:35 | ASMTLACE ---
LACE Length of stay for Answers: 1 day current admission Acuity / Level of Answers: Yes Care: Did the patient have an inpatient admission? Comorbidities - select Answers: Chronic pulmonary disease all that apply Diabetes (uncontrolled or controlled) Other Notes: Endometriosis, HTN # of Emergency department Answers: 1-2 visits in the last 6 months Score: 9 Date Signed: 12/28/2017 04:34 PM Electronically Signed By:Cynthia Gould RN
--- NOTE | 2017-12-28 16:40 | ASDISCHSUM ---
Discharge Information Plan Status:Home with No Needs Medically Cleared to Leave:12/28/2017 Discharge Date:12/28/2017 11:25 AM CM D/C Disposition:Home, Routine, Self-Care ADT D/C Disposition:Home, Routine, Self-Care Projected Discharge Date:12/28/2017 11:25 AM Transportation at D/C:Family Discharge Delay Reason: Follow-Up Date:12/28/2017 11:25 AM Discharge Slot:2 - 12:01 pm - 18:00 pm Final Diagnosis:Abd pain, gastroparesis, elevated blood pressure, leukocytosis, tachycardia, chronic hypoxic resp failure, IDDM type 2 Placement Information Patient Contact Information Contact Name:ASHISH Relationship: Address:[address] Work Phone: City:[place] Alternate Phone: [facility]/Zip Code:[place] [address] Email: Financial Information Financial Class:HMO and PPO Plans Primary Plan Desc:[employer] [facility] [employer] Primary Plan Number:[id number] Secondary Plan Desc:MEDICARE INPATIENT Secondary Plan Number:[id number] Assessment Information LACE LACE Length of stay for Answers: 1 day current admission Acuity / Level of Answers: Yes Care: Did the patient have an inpatient admission? Comorbidities - select Answers: Chronic pulmonary disease all that apply Diabetes (uncontrolled or controlled) Other Notes: Endometriosis, HTN # of Emergency department Answers: 1-2 visits in the last 6 months Score: 9 Date Signed: 12/28/2017 04:34 PM Electronically Signed By:Cynthia Gould RN [facility] CM Progress Note CM Note CM Note Notes: Pt in for severe abdominal pain. D/c from [facility] independent in November for similar issues. OT pending. CM to follow. Date Signed: 12/26/2017 09:45 AM Electronically Signed By:YIFAN Marshall Case Management Discharge Plan Note Case Management Discharge Discharge Order Complete? Answers: Yes Patient to Obtain Answers: Independently Medications Transportation Arranged Answers: Family/Friends EMTALA Complete Answers: No Notes: N/A Case Management Transport Answers: No Notes: N/A Form Complete Faxed Final Orders Answers: No Notes: N/A Agency/Facility Transfer Answers: No Notes: N/A Report Printed & Faxed to Receiving Agency Family Notified Answers: No Notes: Pt notified Discharge Comments Notes: Reviewed chart regarding discharge plan of care, pt's progress. Pt to discharge home independently with family support and no identified needs today. No IM signed, not applicable. Pt to follow up as directed. CM available for any further issues or concerns. Discharge Plan: Home independent with family support Date Signed: 12/28/2017 04:38 PM Electronically Signed By:Cynthia Gould RN Intervention Information Intervention Type:*URSZULA-Signed Date of Service:12/25/2017 10:09 AM Patient Type:Observation Staff Member:Deanna Louis Hours: Discipline: Severity: Comment:
== END 2017-12-28 11:25 | disposition home or self-care (01) | DRG 74 ==
LOC: INTOOBSV 04:14 → F3N 06:07 → OBSVTOIN 12-26 14:50
PROVIDERS: ADMIT Student in an Organized Health Care Education/Training Program; ATTEND Internal Medicine
PROC: 02HV33Z Insertion of Infusion Device into Superior Vena Cava, Percutaneous Approach (ICD-10-PCS; principal; 2017-12-26)
DX: E11.43 Type 2 diabetes mellitus with diabetic autonomic (poly)neuropathy (principal); K31.84 Gastroparesis; J96.11 Chronic respiratory failure with hypoxia; R03.0 Elevated blood-pressure reading, without diagnosis of hypertension; D72.829 Elevated white blood cell count, unspecified; R00.0 Tachycardia, unspecified; J45.909 Unspecified asthma, uncomplicated; M06.9 Rheumatoid arthritis, unspecified; E66.01 Morbid (severe) obesity due to excess calories; Z68.39 Body mass index [BMI] 39.0-39.9, adult; Z79.4 Long term (current) use of insulin
CPT/HCPCS: 84120-90; 96374; 97165-GO; C1751; G0378; G8987-GO-CJ; G8988-GO-CI; J1170; J1815; J2405; J2550; J2920; J7613